=== PATIENT | male | born 1955 | race Caucasian/White ===

== ENCOUNTER 2019-12-21 10:29 | Day surgery (SDC) | payer BC ==
[~2019-12-21 10:29] MED LIST: PROPOFOL INJ 200 MG/20 ML VIAL IV ONE
[2019-12-21] MEDS ORDERED: ONDANSETRON HCL INJ/PF 4 MG/2 ML SDV IV PRN (11:47)
--- NOTE | 2019-12-21 14:43 | Operative Report ---
Operative Report DATE OF SURGERY: 12/21/19 Operative Report: The risk, benefits and alternatives of the procedure including the risk of bleeding, perforation requiring surgery have been explained to the patient in detail and informed consent has been obtained. Patient is placed in a left, lateral decubital position. Timeout was called. Propofol medication is administered. Rectal examination is done which did not reveal any masses, tears or fissures. An Olympus videoscope was introduced into the patient's rectum. Scope was then carefully advanced all the way to the cecum. Cecum was identified by the usual anatomical landmarks including the ileocecal valve as well as the appendiceal office. Photodocumentation is obtained. Scope was then sequentially pulled back via the rest segments of the colon including the ascending colon, hepatic artery, transverse colon, splenic flexure, descending colon and finally into the rectosigmoid portions of the colon. Retroflexion maneuver is performed. PREOPERATIVE DIAGNOSIS: Positive Cologuard test POSTOPERATIVE DIAGNOSIS: Rectal polyp that was removed via snare polypectomy and retrieved. Internal hemorrhoids. Moderately severe sigmoid diverticulosis without any evidence of diverticulitis OPERATION: Colonoscopy with snare polypectomy SURGEON: NICA CONTRERAS ANESTHESIA: LMAC TISSUE REMOVED OR ALTERED: As noted above. COMPLICATIONS: None. ESTIMATED BLOOD LOSS: None. INTRAOPERATIVE FINDINGS: As noted above. PROCEDURE: Patient tolerated the procedure well. No immediate postprocedure complications are noted. Patient is discharged in good condition. Discharge date 12/21/2019. Discharge diet: Regular. Discharge activity: Regular. 2 to 3-week follow-up to discuss findings. Patient is instructed call the office or proceed to the emergency room should there be any further problems or questions. Wait on the pathology. 3 to 5-year surveillance colonoscopy.
[2019-12-21 14:55] VITALS: BP 140/83
== END 2019-12-21 13:48 | disposition home or self-care (01) ==
LOC: OROUT 10:29
PROVIDERS: ATTEND Internal Medicine Gastroenterology
DX: Z12.11 Encounter for screening for malignant neoplasm of colon (principal); K57.30 Diverticulosis of large intestine without perforation or abscess without bleeding; K64.8 Other hemorrhoids; Z79.51 Long term (current) use of inhaled steroids; J44.9 Chronic obstructive pulmonary disease, unspecified; R06.02 Shortness of breath
CPT/HCPCS: 45385; 82962; 88305 ×2; 00811; J2704; 811